=== PATIENT | female | born 1970 | race Caucasian/White ===

== ENCOUNTER 2022-01-06 07:02 | Day surgery (SDC) | payer BC ==
[2022-01-05 12:29] LABS: BASOPHILS # (AUTO) 0.1 X10'3 (0-0.2); BASOPHILS % (AUTO) 0.9 % (0-1); EOSINOPHILS # (AUTO) 0.1 X10'3 (0-0.9); EOSINOPHILS % (AUTO) 1.2 % (0-6); HEMATOCRIT 43.1 % (35.0-45.0); HEMOGLOBIN 14.1 g/dl (12.0-16.0); LYMPHOCYTES % (AUTO) 32.3 % (21-51); MEAN CORPUSCULAR HEMOGLOBIN 28.1 PG (27.0-31.0); MEAN CORPUSCULAR HGB CONC 32.7 g/dL (33.0-36.5); MEAN PLATELET VOLUME 10.3 FL (7.4-10.4); MONOCYTES # (AUTO) 0.4 X10'3 (0-0.9); MONOCYTES % (AUTO) 7.1 % (2-12); NEUTROPHILS # (AUTO) 3.7 X10'3 (1.8-7.7); NEUTROPHILS % (AUTO) 58.5 % (42-75); PLATELET COUNT 229 X10'3 (140-440); RED BLOOD COUNT 5.01 X10'6 (4.20-5.60); RED CELL DISTRIBUTION WIDTH 14.4 % (11.5-14.5); WHITE BLOOD COUNT 6.3 X10'3 (4.5-11.0)
[2022-01-05 12:45] LABS: ALBUMIN 4.3 G/DL (3.4-5.0); ANION GAP 7 (8-16); BLOOD UREA NITROGEN 16 MG/DL (7-18); BUN/CREATININE RATIO 21.6 (6.6-38.0); CALCIUM 9.3 MG/DL (8.5-10.1); CHLORIDE 107 MMOL/L (99-107); CREATININE 0.74 MG/DL (0.40-0.90); GLUCOSE 93 MG/DL (70-104); POTASSIUM 3.8 MMOL/L (3.5-5.1); SODIUM 144 MMOL/L (135-145); TOTAL CARBON DIOXIDE 30.1 MMOL/L (24-32); eGFR 83 ML/MIN
[2022-01-05 12:48] LABS: APTT 29 SECONDS (22-32)
[2022-01-06] VITALS (10 sets, daily range): BP systolic 74–127; BP diastolic 40–97
[~2022-01-06] VITALS: Ht 175.3 cm; Wt 100.5 kg
[2022-01-06] MEDS ORDERED: ATEN50TA8 PO (07:26)
[2022-01-06] MEDS ORDERED: midazolam 1 mg/ML 2ml injection ONE ×2 (07:49→10:49)
[2022-01-06] MEDS ORDERED: fentaNYL/PF 50MCG/1 ML 2ML syringe ONE (07:50)
[2022-01-06] MEDS ORDERED: LIDOcaine 1% W/epiNEPHrine 1:100,000 20ml vial ONE ×2 (07:50→10:52)
[2022-01-06] MEDS ORDERED: ceFAZolin 1000mg inj ONE (07:50)
--- NOTE | 2022-01-06 08:33 | NUR ---
MICKEY Velez RN, Ramu LOAIZA, [facility], at bedside to evaluate Groshong removal Addendum: 01/06/22 at 1155 by Lucita Dooley RN Correction, wrong patient;
[2022-01-06] MEDS ORDERED: ceFAZolin 2gm in dextrose, iso 50 ML IV ONE (10:04)
--- NOTE | 2022-01-06 11:35 | NUR ---
Pt back from procedure. Drsg to left chest CD&I, no s/s of bleeding or infection. Pt denies cp, denies sob. Pt drinking juice, sitting up in bed. Boyfriend at the bedside. Will continue to monitor.
[2022-01-06] MEDS ORDERED: vancomycin/NS 1 GM ADD-VANTAGE 250 ML X 1 DOSE IV ONE (13:00)
== END 2022-01-06 15:15 | disposition home or self-care (01) ==
LOC: SSTAY O 07:02
PROVIDERS: ATTEND Internal Medicine Cardiovascular Disease
DX: Z45.02 Encounter for adjustment and management of automatic implantable cardiac defibrillator (principal); Z79.01 Long term (current) use of anticoagulants; Z79.899 Other long term (current) drug therapy
CPT/HCPCS: 33262; 36415; 80048; 85025; 85610; 85730; 93005; 99152; 99153; C1722; J0690; J2250; J3010; J3370; J3490; 33227; A4620; A6258